=== PATIENT | male | born 1980 | race Caucasian/White ===

== ENCOUNTER 2016-09-05 23:36 | Emergency (ER) | payer SELFPAY ==
[~2016-09-05] VITALS: Ht 172.7 cm; Wt 61.0 kg
[2016-09-06 00:01] VITALS: BP 90/48
[2016-09-06] MEDS ORDERED: CARBAMAZEPINE 200MG TABLET PO ONE (03:15)
[2016-09-06] MEDS ORDERED: LEVETIRACETAM 500MG TABLET PO ONE (03:15)
== END 2016-09-06 03:46 | disposition home or self-care (01) ==
LOC: ER 09-06 02:20
DX: Z76.0 Encounter for issue of repeat prescription (principal); G40.909 Epilepsy, unspecified, not intractable, without status epilepticus
CPT/HCPCS: 99283; Z7610